=== PATIENT | male | born 1940 | race African-American/Black ===

== ENCOUNTER 2022-04-14 17:30 | Inpatient (IN) | payer OTHER ==
[~2022-04-14] VITALS: Ht 182.9 cm; Wt 120.2 kg
[~2022-04-14 17:30] MED LIST: EPINEPHRINE 0.1MG/ML (1:10,000) 10ML SYR ONE; SODIUM BICARBONATE 8.4% 1 MEQ/ML 50ML SYR IV ONE
[2022-04-14] MEDS ORDERED: ACETAMINOPHEN 325MG TABLET PO STA (17:59)
[2022-04-14] MEDS ORDERED: SODIUM CHLORIDE 0.9% 1000ML BAG (SEPSIS BOLUS) IV ONE (18:00)
[2022-04-14 18:48] LABS: CLARITY URINE CLEAR (CLEAR); COLOR URINE YELLOW (YELLOW); HEMATOCRIT. 33.7 % (42.0-52.0); HEMOGLOBIN. 10.9 g/dL (14.0-18.0); KETONES URINE NEGATIVE (NEGATIVE); LEUKOCYTE ESTERASE URINE NEGATIVE (NEGATIVE); MEAN CORPUSCULAR HEMOGLOBIN 27.9 pg (28.0-32.0); MEAN CORPUSCULAR VOLUME 86.6 fL (80.0-94.0); MEAN PLATELET VOLUME 8.4 fl (7.4-10.4); NITRITE URINE NEGATIVE (NEGATIVE); OCCULT BLOOD URINE NEGATIVE (NEGATIVE); PH URINE 5.5 (4.5-8.0); PLATELET 172 x1000/uL (130-400); PROTEIN URINE 1+ (NEGATIVE); RED BLOOD CELL COUNT 3.89 mill/uL (4.7-6.1); RED CELL DISTRIBUTION WIDTH 16.5 % (11.6-14.6); SPECIFIC GRAVITY URINE 1.016 (1.005-1.030); UROBILINOGEN URINE 0.2 E.U./dL (0.2-1.0)
[2022-04-14 18:55] LABS: CHLORIDE 100 mEq/L (98-107)
[2022-04-14 19:11] LABS: PLATELET ESTIMATE NORMAL
[2022-04-14] MEDS ORDERED: VANCOMYCIN 1G PREMIX 200 ML IV ONE (19:30)
[2022-04-14] MEDS ORDERED: PIPERACILLIN/TAZ 3.375G PREMIX 50 ML IV ONE (19:30)
[2022-04-14] MEDS ORDERED: PIPERACILLIN/TAZ 3.375G PREMIX 50 ML IV NR (22:00)
[2022-04-14] MEDS ORDERED: EPINEPHRINE 10 MG in SODIUM CHLORIDE 0.9% 240 ML IV PRN (22:15)
[2022-04-14] MEDS ORDERED: NOREPINEPHRINE 8MG/250ML PMX 250 ML IV ONE (22:15)
[2022-04-14] MEDS: EPINEPHRINE 10 MG in SODIUM CHLORIDE 0.9% 240 ML IV PRN (22:55)
[2022-04-15] VITALS (93 sets, daily range): BP systolic 54–170; BP diastolic 33–67
[2022-04-15 02:23] LABS: BG BASE EXCESS -19.6 mmol/L (-2.0-2.0); BG CARBOXYHEMOGLOBIN 0.3 % (0.5-1.5); BG DEOXYHEMOGLOBIN 2.1 % (0.0-5.0); BG FRACTION INSPIRED OXYGEN 80; BG HCO3 ACT 10.4 mmol/L (22.0-26.0); BG METHEMOGLOBIN 0.4 % (0.0-1.5); BG OXYGEN SATURATION 97.9 % (92.0-98.5); BG OXYHEMOGLOBIN 97.2 % (94.0-97.0); BG PCO2 40.5 mmHg (35.0-45.0); BG PH 7.029 (7.350-7.450); BG PO2 145.5 mmHg (75.0-100.0); BG SAMPLE SITE RIGHT RADIAL; BG TOTAL HEMOGLOBIN 12.1 g/dL (12.0-18.0); BG TOTAL RESPIRATORY RATE 16 b/min
[2022-04-15] MEDS ORDERED: CLONIDINE 0.1MG TABLET PO PRN (02:45)
[2022-04-15] MEDS ORDERED: MAGNESIUM/ALUMINUM HYDROXIDE/SIMETHICONE 30ML UDC PO PRN (02:45)
[2022-04-15] MEDS ORDERED: MORPHINE SULFATE 2 MG/ML CPJ (NOT FOR IM USE) IV PRN (02:45)
[2022-04-15] MEDS ORDERED: SODIUM BICARBONATE 8.4% 1 MEQ/ML 50ML SYR IV NR ×3 (02:45→13:30)
[2022-04-15] MEDS ORDERED: ACETAMINOPHEN 650MG SUPP PR PRN ×2 (02:45)
[2022-04-15] MEDS: NOREPINEPHRINE 32 MG in DEXT 5% WATER 218 ML IV PRN ×3 (02:50→22:53)
[2022-04-15] MEDS: EPINEPHRINE 10 MG in SODIUM CHLORIDE 0.9% 240 ML IV PRN ×5 (03:13→21:12)
[2022-04-15 05:15] LABS: BG CARBOXYHEMOGLOBIN 0.3 % (0.5-1.5); BG DEOXYHEMOGLOBIN 5.9 % (0.0-5.0); BG FRACTION INSPIRED OXYGEN 60; BG HCO3 ACT 8.6 mmol/L (22.0-26.0); BG METHEMOGLOBIN 0.2 % (0.0-1.5); BG OXYGEN SATURATION 94.1 % (92.0-98.5); BG OXYHEMOGLOBIN 93.6 % (94.0-97.0); BG PCO2 29.3 mmHg (35.0-45.0); BG PH 7.085 (7.350-7.450); BG PO2 87.3 mmHg (75.0-100.0); BG SAMPLE SITE LEFT RADIAL; BG TOTAL HEMOGLOBIN 11.5 g/dL (12.0-18.0); BG TOTAL RESPIRATORY RATE 22 b/min
[2022-04-15] MEDS: VASOPRESSIN 20 UNIT in SODIUM CHLORIDE 0.9% 99 ML IV PRN ×2 (05:35→20:44)
[2022-04-15] MEDS ORDERED: SODIUM BICARBONATE 100 MEQ in SODIUM CHLORIDE 0.45% 1,000 ML IV SCH (06:30)
[2022-04-15] MEDS ORDERED: SODIUM BICARBONATE 8.4% 1 MEQ/ML 50ML SYR IV SCH (06:30)
[2022-04-15] MEDS ORDERED: NALOXONE HCL 0.4MG/ML VIAL IV PRN (06:45)
[2022-04-15 08:42] LABS: HEMOGLOBIN. 10.2 g/dL (14.0-18.0); MEAN CORPUSCULAR HEMOGLOBIN 28.3 pg (28.0-32.0); MEAN CORPUSCULAR VOLUME 91.6 fL (80.0-94.0); MEAN PLATELET VOLUME 8.2 fl (7.4-10.4); PLATELET 171 x1000/uL (130-400); RED CELL DISTRIBUTION WIDTH 16.8 % (11.6-14.6)
[2022-04-15 08:48] LABS: CHLORIDE 102 mEq/L (98-107)
[2022-04-15 09:20] LABS: BETA HYDROXYBUTYRATE 0.4 mMol/L (0.0-0.3); HDL CHOLESTEROL 30 mg/dL (40-59); LDL CHOLESTEROL 41 mg/dL (5-100)
[2022-04-15 09:48] LABS: CREATINE KINASE 9092 IU/L (39-308)
[2022-04-15] MEDS: SODIUM BICARBONATE 100 MEQ in SODIUM CHLORIDE 0.45% 1,000 ML IV SCH ×2 (10:00→23:06)
[2022-04-15] MEDS ORDERED: VANCOMYCIN 1GM PMX (XELLIA) 200 ML IV SCH (12:00)
[2022-04-15] MEDS: PIPERACILLIN/TAZOBACTAM 3.375 G in DEXTROSE 5% WATER 50 ML IV SCH ×2 (12:00→21:48)
[2022-04-15 13:08] LABS: BG BASE EXCESS -22.8 mmol/L (-2.0-2.0); BG CARBOXYHEMOGLOBIN 0.3 % (0.5-1.5); BG DEOXYHEMOGLOBIN 14.9 % (0.0-5.0); BG HCO3 ACT 6.8 mmol/L (22.0-26.0); BG METHEMOGLOBIN 0.4 % (0.0-1.5); BG OXYHEMOGLOBIN 84.4 % (94.0-97.0); BG PH 7.017 (7.350-7.450); BG SAMPLE SITE RIGHT BRACHIAL; BG VENT MODE VENT - AC
[2022-04-15] MEDS ORDERED: PIPERACILLIN/TAZOBACTAM 3.375 G in DEXTROSE 5% WATER 50 ML IV SCH (14:00)
[2022-04-15] MEDS ORDERED: IPRATROPIUM/ALBUTEROL 0.5-3(2.5)MG/3ML NEB HHN PRN (14:45)
[2022-04-15] MEDS ORDERED: PANTOPRAZOLE SODIUM 40 MG/VIAL IV SCH (17:00)
[2022-04-15] MEDS: IPRATROPIUM/ALBUTEROL 0.5-3(2.5)MG/3ML NEB HHN SCH (20:06)
[2022-04-15 22:42] LABS: PLATELET ESTIMATE NORMAL
[2022-04-16] VITALS (31 sets, daily range): BP systolic 63–172; BP diastolic 30–53
[2022-04-16] MEDS: IPRATROPIUM/ALBUTEROL 0.5-3(2.5)MG/3ML NEB HHN SCH (01:30)
[2022-04-16] MEDS: VASOPRESSIN 20 UNIT in SODIUM CHLORIDE 0.9% 99 ML IV PRN (03:03)
[2022-04-16] MEDS: EPINEPHRINE 10 MG in SODIUM CHLORIDE 0.9% 240 ML IV PRN (03:43)
[2022-04-16 05:38] LABS: HEMATOCRIT. 33.6 % (42.0-52.0); HEMOGLOBIN. 9.3 g/dL (14.0-18.0); MEAN CORPUSCULAR VOLUME 101.2 fL (80.0-94.0); MEAN PLATELET VOLUME 9.7 fl (7.4-10.4); PLATELET 128 x1000/uL (130-400); RED BLOOD CELL COUNT 3.32 mill/uL (4.7-6.1); RED CELL DISTRIBUTION WIDTH 17.6 % (11.6-14.6)
[2022-04-16] MEDS: NOREPINEPHRINE 32 MG in DEXT 5% WATER 218 ML IV PRN (05:42)
[2022-04-16] MEDS ORDERED: SODIUM POLYSTYRENE SULFONATE 15 G/60 ML BOT PO SCH (07:00)
[2022-04-16] MEDS ORDERED: SODIUM BICARBONATE 8.4% 1 MEQ/ML 50ML SYR IV SCH (07:00)
[2022-04-16] MEDS ORDERED: SODIUM BICARBONATE 150 MEQ in DEXTROSE 5% WATER 1,000 ML IV SCH (08:00)
[2022-04-16 16:54] LABS: NUCLEATED RED BLOOD CELLS 1 /100 WBC; PLATELET ESTIMATE DECREASED
== END 2022-04-16 08:30 | DRG 871 ==
LOC: ER 17:30 → CVICU 20:52 → ENRESERV 04-15 01:09
PROVIDERS: ADMIT Family Medicine Adult Medicine; ATTEND Family Medicine Adult Medicine
PROC: 0BH17EZ Insertion of Endotracheal Airway into Trachea, Via Natural or Artificial Opening (ICD-10-PCS; 2022-04-14)
PROC: 5A12012 Performance of Cardiac Output, Single, Manual (ICD-10-PCS; 2022-04-14)
PROC: 02HV33Z Insertion of Infusion Device into Superior Vena Cava, Percutaneous Approach (ICD-10-PCS; 2022-04-14)
PROC: B548ZZA Ultrasonography of Superior Vena Cava, Guidance (ICD-10-PCS; 2022-04-14)
PROC: 5A1945Z Respiratory Ventilation, 24-96 Consecutive Hours (ICD-10-PCS; principal; 2022-04-15)
DX: A41.9 Sepsis, unspecified organism (principal); K72.00 Acute and subacute hepatic failure without coma; N17.0 Acute kidney failure with tubular necrosis; J96.00 Acute respiratory failure, unspecified whether with hypoxia or hypercapnia; R65.21 Severe sepsis with septic shock; J69.0 Pneumonitis due to inhalation of food and vomit; K92.2 Gastrointestinal hemorrhage, unspecified; E87.2 Acidosis; M62.82 Rhabdomyolysis; G93.1 Anoxic brain damage, not elsewhere classified; Z20.822 Contact with and (suspected) exposure to COVID-19; I46.9 Cardiac arrest, cause unspecified; D64.9 Anemia, unspecified; I11.0 Hypertensive heart disease with heart failure; I25.10 Atherosclerotic heart disease of native coronary artery without angina pectoris; I50.9 Heart failure, unspecified; E78.00 Pure hypercholesterolemia, unspecified; E11.9 Type 2 diabetes mellitus without complications; R74.01 Elevation of levels of liver transaminase levels; I95.9 Hypotension, unspecified; Z87.891 Personal history of nicotine dependence; Z95.1 Presence of aortocoronary bypass graft
CPT/HCPCS: 31500; 36415; 36600; 71045; 80048; 80053; 80061; 80202; 81003; 82010; 82270; 82375; 82550; 82805; 82962; 83605; 83880; 84443; 84484; 85025; 87070; 87077; 87186; 87426; 87493; 92950; 93005; 94002; 94003; 94640; 99291; C9113; J2543; J3370; J3490; J7030; J7050; J7060; J7070